=== PATIENT | female | born 1965 | race Caucasian/White ===

== ENCOUNTER 2023-01-03 18:37 | Emergency (ER) | payer BC, OTHER ==
[~2023-01-03] VITALS: Ht 172.7 cm; Wt 68.0 kg
[2023-01-03 18:50] VITALS: BP_SYST 144; PULSE 86; RESP 18; TEMP 97.9; O2SAT 99
[2023-01-03] MEDS ORDERED: IBUP-1969 PO (21:36)
[2023-01-03] MEDS ORDERED: ACET-2634 PO (21:36)
[2023-01-03] MEDS ORDERED: DIPHTH,PERTUSS(ACELL),TET VAC 0.5 ML VIAL (Tdap) I.M. ONE (21:45)
[2023-01-03] MEDS ORDERED: IBUPROFEN 600 MG TABLET PO ONE (21:45)
[2023-01-03] MEDS ORDERED: ACETAMINOPHEN 500 MG TABLET PO ONE (21:45)
[2023-01-03 22:16] VITALS: BP_SYST 141; PULSE 85; RESP 18; TEMP 97.9; O2SAT 99
== END 2023-01-03 22:18 | disposition home or self-care (01) ==
LOC: SED 18:37
DX: S80.02XA Contusion of left knee, initial encounter (principal); Z79.899 Other long term (current) drug therapy; W18.40XA Slipping, tripping and stumbling without falling, unspecified, initial encounter; Y93.89 Activity, other specified; Y92.89 Other specified places as the place of occurrence of the external cause; Y99.8 Other external cause status
CPT/HCPCS: 73564; 90715; 99283